=== PATIENT | male | born 1975 | race Caucasian/White ===

== ENCOUNTER 2021-07-19 12:39 | Emergency (ER) | payer MEDICAID ==
[~2021-07-19] VITALS: Ht 165.1 cm; Wt 79.5 kg
[2021-07-19] MEDS ORDERED: IBUPROFEN 600 MG TABLET PO ONE (13:30)
[2021-07-19 16:17] VITALS: BP 118/75
== END 2021-07-19 16:34 | disposition home or self-care (01) ==
LOC: EMS 12:39
DX: S82.145A Nondisplaced bicondylar fracture of left tibia, initial encounter for closed fracture (principal); F12.90 Cannabis use, unspecified, uncomplicated; F17.210 Nicotine dependence, cigarettes, uncomplicated; W18.39XA Other fall on same level, initial encounter; Y93.89 Activity, other specified; Y92.89 Other specified places as the place of occurrence of the external cause; Y99.8 Other external cause status
CPT/HCPCS: 29505; 99283